=== PATIENT | male | born 1970 | race Caucasian/White ===

== ENCOUNTER → 2018-03-02 | Outpatient (CLI) | payer BC ==
[~2018-03-02] MED LIST: CONRAY-43 43% 50ML VIAL (Q9960) As Ordered; LIDOCAINE 1% MDV 20ML VIAL As Ordered; TRIAMCINOLONE ACETONIDE SUSP 40 MG/ML VIAL (J3301) As Ordered
== END ==
LOC: M RADPRO 10:25
DX: M16.11 Unilateral primary osteoarthritis, right hip (principal)
CPT/HCPCS: 20610

== ENCOUNTER → 2018-10-25 | Outpatient (CLI) | payer BC ==
[~2018-10-25] MED LIST changes: -CONRAY-43 43% 50ML VIAL (Q9960) As Ordered; +CONRAY-43 43% 50ML VIAL (Q9960) As Ordered ONE; -LIDOCAINE 1% MDV 20ML VIAL As Ordered; +LIDOCAINE 1% MDV 20ML VIAL As Ordered ONE; -TRIAMCINOLONE ACETONIDE SUSP 40 MG/ML VIAL (J3301) As Ordered; +TRIAMCINOLONE ACETONIDE SUSP 40 MG/ML VIAL (J3301) As Ordered ONE
--- NOTE | 2018-10-25 19:28 | REP ---
RIGHT HIP INJECTION The procedure was performed under the direct supervision of Dr. Gilmore. The benefits and risks including but not limited to pain infection bleeding and anaphylaxis were explained to the patient and informed consent was obtained. The right femoral neck was localized using fluoroscopic guidance. The skin was prepped and draped in a sterile fashion. 1% lidocaine was used as a local anesthetic. Using fluoroscopic guidance a 822-gauge spinal needle was inserted and advanced to the femoral neck. 0.5 ml of Conray 43 was injected to verify placement. 6 ml of a solution containing 5 ml of 1% lidocaine and 1 ml of Kenalog 40 mg injected. The needle was then removed. The patient tolerated the procedure well and there were no immediate complications. Less than 6 seconds of fluoroscopy time was utilized for this procedure. Reviewed by ANGELA Tafoya 10/25/2018 04:59 P Electronically Signed by Mayo Gilmore MD 10/25/2018 07:19 P
== END ==
LOC: M RADPRO 09:17
PROVIDERS: ATTEND Physician Assistant
DX: M16.11 Unilateral primary osteoarthritis, right hip (principal)
CPT/HCPCS: 20610; 77002; J3301; Q9960

== ENCOUNTER 2019-08-21 05:55 | Inpatient (IN) | payer BC ==
--- NOTE | 2019-08-16 09:13 | HPE ---
DATE OF ADMISSION: 08/21/2019 HISTORY OF PRESENT ILLNESS: This is a pleasant 48-year-old gentleman with continuing symptomatic right hip osteoarthritis. He has consented for a right total hip arthroplasty per Dr. Ang Granados. His x-rays are consistent with advanced early onset arthritis. Medical optimization per TERESSA Casas. ALLERGIES: PENICILLIN - swelling, itching. Bees - swelling allergy. MEDICATIONS LIST: - fish oil 1000 mg capsule one capsule orally once a day over the counter. - atorvastatin calcium 40 mg tablet, one tablet orally once a day - ibuprofen 200 mg tablet, one tablet with fluid or mild as needed orally three times a day MEDICAL PROBLEM LIST: Symptomatic right hip. Osteoarthritis. Hypercholesterolemia. PAST SURGICAL HISTORY: Bilateral lower extremity open reduction internal fixation secondary to a crush injury in the . FAMILY HISTORY: Mother , stomach cancer. Denies family history of coronary artery disease. SOCIAL HISTORY: He is a former smoker. It has been many years since he smoked. REVIEW OF SYSTEMS: He denies chest pain, shortness of breath, dyspnea on exertion, fevers, chills, malaise, upper respiratory or urinary tract symptoms. LABS: Glucose 100, essentially within normal limits. Remaining labs appear within range as ordered by Dr. Granados report 07/22/2019 via [facility]. ECG: Read as sinus rhythm normal ECG confirmed by Atilio Perez MD. Chest x- ray [facility] imaging services department: No acute identifiable diseases ready by Terrance Altamirano. PHYSICAL EXAMINATION: This is a pleasant 48-year-old male in no acute distress, alert and oriented times three. Mood and affect are appropriate. He has right hip range of motion irritability limitation. Bilateral lower extremity skin intact, benign noninfectious-looking. Bowels soft, nontender times four. Chest rises symmetrically, regular rate and rhythm. Lungs clear to auscultation. Neck supple. Negative jugular venous distention (JVD) or bruits. Normocephalic. IMPRESSION: 1. Symptomatic right hip osteoarthritis. 2. Patient consented for a right total hip arthroplasty per Dr. Ang Granados. 3. Medical optimization per TERESSA Casas. 4. On-call to operating room (OR) 600 mg IV clindamycin per reported allergy to Penicillin. 5. Sequential compression stockings, (SCDs) and thromboembolic deterrent stockings (TEDS) in OR. ADDENDUM: Please note that the correct vitals are height 69 inches, BP 118/80, weight 228, pulse 68, temperature 97.9, respiration 18. at 0908 at 0915 [facility]
[2019-08-21] VITALS (7 sets, daily range): BP systolic 101–151; BP diastolic 68–93
[~2019-08-21] VITALS: Ht 172.7 cm; Wt 99.3 kg
[~2019-08-21 05:55] MED LIST changes: +ATOR40TA75 PO; -CONRAY-43 43% 50ML VIAL (Q9960) As Ordered ONE; +FISH1000 PO; +HYDR-3713 PO; +IBUP200C29 PO; -LIDOCAINE 1% MDV 20ML VIAL As Ordered ONE; +ODOR100T3 PO; -TRIAMCINOLONE ACETONIDE SUSP 40 MG/ML VIAL (J3301) As Ordered ONE
[2019-08-21] MEDS ORDERED: CLINDAMYCIN 900 MG in IV 1 EA IV ONE (06:00)
[2019-08-21] MEDS ORDERED: LIDOCAINE 1% MDV 20ML VIAL SQ PRN (06:00)
[2019-08-21] MEDS ORDERED: LR 1,000 ML IV ONE (06:00)
[2019-08-21] MEDS ORDERED: ceFAZolin 1GM INJ (J0690 PER 500MG) As Ordered ONE (07:11)
[2019-08-21] MEDS ORDERED: TRANEXAMIC ACID 100 MG/ML 10ML VIAL As Ordered ONE (07:12)
[2019-08-21] MEDS ORDERED: EPINEPHrine INJ 1 MG/ML 1ML VIAL As Ordered ONE (07:12)
[2019-08-21] MEDS ORDERED: BUPIVACAINE LIPOSOME/PF 1.3% 20ML VIAL (13.3MG/ML)(EXPAREL)(C9290 PER1MG) As Ordered ONE (07:12)
[2019-08-21] MEDS ORDERED: CLINDAMYCIN INJ 900MG/6ML VIAL As Ordered ONE (07:14)
[2019-08-21] MEDS ORDERED: MIDAZOLAM INJ 2 MG/2 ML VIAL (J2250) As Ordered ONE ×2 (07:17→07:36)
[2019-08-21] MEDS ORDERED: fentaNYL 100 MCG/2 ML INJECTION (J3010) As Ordered ONE (07:17)
[2019-08-21] MEDS ORDERED: PROPOFOL 500 MG/50 ML VIAL As Ordered ONE (07:17)
[2019-08-21] MEDS ORDERED: ONDANSETRON 4MG/2ML VIAL (J2405) As Ordered ONE (07:18)
[2019-08-21] MEDS ORDERED: LIDOCAINE 2% INJ 100 MG/5 ML SDV (FOR ANES.) As Ordered ONE (07:18)
[2019-08-21] MEDS ORDERED: dexameTHASONE 4 MG/ML 1ML VIAL (J1100) As Ordered ONE (07:18)
--- NOTE | 2019-08-21 07:57 | IPN ---
DATE: 08/21/2019 The patient was seen and examined. He wished to go ahead with a right total hip arthroplasty. He understands the nature this, the risks of bleeding, infection, damage to nerves, vessels, persistent pain, wear loosening, dislocation, leg length inequality, blood clots, medical problems, among others. He has elected to go with a ceramic on ceramic weightbearing surface. I think this is probably the best choice given his age in order to hopefully provide a longer lasting hip replacement.
[2019-08-21] MEDS ORDERED: PHENYLephrine HCL 500 MCG/5 ML (100MCG/ML) SYRINGE (J2370) As Ordered ONE ×4 (08:09→10:43)
[2019-08-21] MEDS ORDERED: PROPOFOL 200 MG/20 ML VIAL As Ordered ONE (08:49)
[2019-08-21] MEDS: ATORVASTATIN 20 MG TAB PO SCH (09:00)
[2019-08-21] MEDS ORDERED: ONDANSETRON 4MG/2ML VIAL (J2405) IV PRN ×2 (09:45→10:00)
[2019-08-21] MEDS ORDERED: LR 1,000 ML IV SCH ×2 (09:45)
[2019-08-21] MEDS ORDERED: PERCOCET 5MG/325MG TAB PO PRN (09:45)
[2019-08-21] MEDS ORDERED: HYDROMORPHONE HCL 0.5 MG/ 0.5 ML SYRINGE (J1170 PER 1) IV PRN (09:45)
[2019-08-21] MEDS ORDERED: fentaNYL 100 MCG/2 ML INJECTION (J3010) IV PRN (09:45)
[2019-08-21] MEDS ORDERED: FLEET ENEMA PR PRN (10:00)
[2019-08-21] MEDS ORDERED: ACETAMINOPHEN TAB 650MG DOSE (2X325MG) PO PRN (10:00)
[2019-08-21] MEDS ORDERED: MORPHINE 4 MG/ML 1ML VIAL/SYRINGE (J2270) IV PRN (10:00)
--- NOTE | 2019-08-21 10:38 | REP ---
RIGHT HIP, TWO VIEWS: Two views of the right hip performed. There is placement of a total hip prosthesis. Osseous structures are intact and well aligned. Metallic skin mabel are seen laterally. Electronically Signed by Damian Lau MD 08/21/2019 07:54 P
[2019-08-21] MEDS: PERCOCET 5MG/325MG TAB PO PRN ×2 (12:15→18:29)
[2019-08-21] MEDS: MORPHINE 2 MG/ML 1ML VIAL (J2270) IV PRN ×2 (13:51→16:56)
--- NOTE | 2019-08-21 13:55 | CR.PDOC ---
General Date of Consultation: Aug 21, 2019 Consultation REASON FOR CONSULTATION/CHIEF COMPLAINT: Medical management after right total hip arthroplasty. HISTORY OF PRESENT ILLNESS: 48-year-old male with past medical history of hyperlipidemia and osteoarthritis, is admitted status post right total hip arthroplasty. He is seen on the floor, reports moderate to severe right hip pain, has not been taking IV pain medications as he has never had them in the past and is concerned about how he will react to them, he has been taking Percocet, which is helping mildly. Otherwise, he has no other complaints at this time, denies any shortness of breath, chest pain, nausea, vomiting, abdominal pain or diarrhea. He has not passed any flatus or urinated post op. He is about to eat his lunch as we speak, procedure was done under spinal anesthesia. 10 point review of system was negative except for above ALLERGIES: Please see below. HOME MEDICATIONS: Please see below. PAST MEDICAL HISTORY: 1. Hyperlipidemia. 2. Osteoarthritis. PAST SURGICAL HISTORY: 1. Bilateral knee arthroscopies 2. Right total hip arthroplasty FAMILY HISTORY: Mother with stomach cancer SOCIAL HISTORY: Ex-smoker only smoked for a few years. Social alcohol use. Denies drug use PHYSICAL EXAMINATION: VITAL SIGNS: Please see below. GENERAL: No distress HEENT: Normocephalic, atraumatic, moist mucous membranes NECK: Supple CARDIOVASCULAR EXAMINATION: S1, S2, no murmurs RESPIRATORY EXAMINATION: Clear to auscultation, no wheezing ABDOMINAL EXAMINATION: Soft, nontender, nondistended, hypoactive bowel sounds EXTREMITIES: Range of motion limited due to pain SKIN: No rash NEUROLOGICAL EXAMINATION: Alert and oriented 3, no focal deficits PSYCHIATRIC EXAMINATION: Calm and cooperative LABORATORY DATA: Please see below. ASSESSMENT/PLAN: 1. Status post right total hip arthroplasty. Postop management as per orthopedic service. On Xarelto for VTE prophylaxis 2. Hyperlipidemia. Continue atorvastatin 40 mg daily DVT prophylaxis: Xarelto GI prophylaxis: Not needed Vital Signs/I&O Vital Signs Date Time Temp Pulse Resp B/P (MAP) Pulse Ox O2 Delivery O2 Flow Rate FiO2 08/21/19 12:45 18 08/21/19 11:30 76 123/73 (90) 96 Room Air 08/21/19 11:00 97.6 Allergies Coded Allergies: Penicillins (Verified Allergy, Intermediate, swelling, 08/07/19) bee venom protein (honey bee) (Verified Allergy, Intermediate, localized swelling, 08/07/19) Home Medications Scheduled Atorvastatin Calcium (Atorvastatin Calcium) 40 Mg Tablet, 40 MG PO DAILY, (Reported) Garlic (Garlic) 100 Mg Tablet, Unknown Dose PO DAILY, (Reported) Riley-3 Fatty Acids/Fish Oil (Fish Oil 1,000 mg Capsule) 1 Each Capsule, 1,000 MG PO DAILY, (Reported) Scheduled PRN Hydrocodone/Acetaminophen (Hydrocodone-Acetamin 5-325 mg) 1 Each Tablet, 1 TAB PO Q4HP PRN for PAIN, (Reported) MDD 4 Ibuprofen (Ibuprofen) 200 Mg Capsule, 200 MG PO PRN PRN for PAIN, (Reported) SRIRAM SINGH MD Aug 21, 2019 13:55
[2019-08-21] MEDS: CLINDAMYCIN 900 MG in IV 1 EA IV SCH (16:56)
[2019-08-22] MEDS: CLINDAMYCIN 900 MG in IV 1 EA IV SCH (00:26)
[2019-08-22] MEDS: PERCOCET 5MG/325MG TAB PO PRN ×3 (00:29→11:26)
[2019-08-22 06:00] VITALS: BP 136/90
[2019-08-22] MEDS ORDERED: PERC5TAB12 PO (06:21)
[2019-08-22] MEDS ORDERED: XARE10TA PO (06:21)
[2019-08-22 06:26] LABS: HEMATOCRIT 40.4 % (42.0-52.0); HEMOGLOBIN 14.1 g/dl (13.5-17.5); MEAN CORPUSCULAR HEMOGLOBIN 32.2 pg (27.0-33.0); MEAN CORPUSCULAR HGB CONC 34.9 g/dl (32.0-36.5); MEAN CORPUSCULAR VOLUME 92.2 fl (80.0-96.0); PLATELET COUNT, AUTOMATED 199 10^3/uL (150-450); RED BLOOD COUNT 4.38 10^6/uL (4.30-6.10); WHITE BLOOD COUNT 10.2 10^3/uL (4.0-10.0)
[2019-08-22] MEDS: ATORVASTATIN 20 MG TAB PO SCH (08:20)
[2019-08-22] MEDS ORDERED: MIRALAX *UNIT DOSE* 17GM PACKET PO SCH (09:00)
[2019-08-22] MEDS ORDERED: SENOKOT S TAB PO SCH (09:00)
[2019-08-22] MEDS ORDERED: MOM 30ML SUSPENSION UDC PO SCH (09:00)
[2019-08-22] MEDS ORDERED: RIVAROXABAN 10 MG TAB (XARELTO) PO SCH (18:00)
--- NOTE | 2019-08-22 19:10 | RO ---
DATE OF PROCEDURE: 08/21/2019 PREOPERATIVE DIAGNOSIS: Right hip osteoarthritis. POSTOPERATIVE DIAGNOSIS: Right hip osteoarthritis. PROCEDURE: Right total hip arthroplasty using a [place] stem high offset size 6, 1.5 neck, a 54 acetabular component and ceramic on ceramic. SURGEON: Dr. Ang Granados WELFARE MANAGER; Nilson Camara ANESTHESIA: Spinal. ESTIMATED BLOOD LOSS: 200 mL. COMPLICATIONS: None. INDICATIONS: This is a 48-year-old who wished to go ahead with a hip replacement. He understood the nature and risks associated with the procedure. The patient was taken to the operating room, placed in left lateral decubitus position on the [place] positioner. The right hip was prepped and draped in the usual sterile fashion. A time-out was performed. All areas were padded appropriately. Once the right hip was prepped and draped in the usual sterile fashion, a time-out was performed. I then created a longitudinal incision over the lateral aspect of the hip, dissected sharply down through subcutaneous tissue, controlled hemostasis with the cautery. I incised the fascia mel, identified the abductors and then divided the anterior 40% of the abductor off of the femur as I gradually externally rotated it. The femoral head and neck were exposed. I then dislocated the hip with the library services assistant's help and then used the canal initiating reamer followed by the canal finding reamer, the lateralizing reamer and then sequentially reamed up to a size 6, which had good purchase. I then made the neck cut about half a fingerbreadth up from the lesser trochanter, removed the head. There was severe arthritis. I then directed attention to the acetabulum. Anterior and posterior retractors were placed. I removed soft tissue from around the acetabulum, and I noted that I was going to be able to deepen the acetabulum with the reamers to provide better fixation for the cup. I then sequentially reamed up to a size 53 and had good concentric reaming and bleeding bone and controlled hemostasis. I then impacted in the cup and in the appropriate amount of anteversion and horizontal tilt using the external alignment guide. I was pleased with the position of the cup. I then used a trial liner and directed our attention back to the femur where broaching was done up to a size 6, which had a good fit and fill. I then did a trial reduction and was overall pleased with this. However, I decided to go with a high offset because I did medialized some on the acetabular side. I did have to remove some osteophytes posteriorly around the acetabulum. And put the hip through a range of motion. Excellent stability and minimal shuck was noted in full extension. There was appropriate soft tissue tension. I then removed the trial components, inserted the actual ceramic liner in after the apex hole eliminator. This was impacted in place carefully after making sure it was concentrically seated. I then placed the actual 6 high offset stem, impacted this in place. I had irrigated multiple times. I then trial reduced this with the 1.5, 36 head and ended up placing the actual ceramic ball on, impacted this in place. I made sure it was well seated and then reduced the hip, put the hip through a range of motion, was very pleased with the stability and range of motion. There was no squeaking. There was appropriate soft tissue tension. Full flexion internal rotation was stable, full extension external rotation was stable. I then irrigated copiously, placed the TXA in the deep tissues, placed the Exparel in the deep tissues, repaired the minimus with #1 Vicryl suture and the abductor with #1 Vicryl suture, irrigating. It was noted that the abductor tissue was somewhat atrophic and of lower quality than I would have expected in someone his age, so extra stitches were used to repair this layer. Then irrigated, repaired the fascia mel with #1 Vicryl suture and running Stratafix. Subcu was closed with #2-0 Vicryl and the skin with mabel. The patient was taken to the recovery room in stable condition. There were no known complications. The plan will be routine postop. The library services assistant was instrumental in holding retractors and assisting in reducing and dislocating the hip and assisting in wound closure.
== END 2019-08-22 11:50 | disposition home or self-care (01) | DRG 301 ==
LOC: M OR 05:55 → M MS5PR 11:45
PROVIDERS: ADMIT Orthopaedic Surgery; ATTEND Orthopaedic Surgery
PROC: 0SR90JA Replacement of Right Hip Joint with Synthetic Substitute, Uncemented, Open Approach (ICD-10-PCS; principal; 2019-08-21 07:30)
DX: M16.11 Unilateral primary osteoarthritis, right hip (principal); E78.5 Hyperlipidemia, unspecified